=== PATIENT | female | born 1985 | race Caucasian/White ===

== ENCOUNTER → 2016-09-11 | Outpatient (CLI) | payer MEDICAID | LOC: CIMAGING 08:10 | PROVIDERS: ATTEND Emergency Medicine | DX: R10.9 Unspecified abdominal pain (principal); R11.2 Nausea with vomiting, unspecified; R19.7 Diarrhea, unspecified | CPT/HCPCS: 76700-PO ==

== ENCOUNTER → 2016-09-26 | Outpatient (CLI) | payer MEDICAID | LOC: CIMAGING 15:11 | PROVIDERS: ATTEND Physician Assistant | DX: R10.2 Pelvic and perineal pain (principal) | CPT/HCPCS: 76856-PO ==

== ENCOUNTER 2017-07-11 09:51 | Emergency (ER) | payer MEDICAID ==
--- NOTE | 2017-07-11 10:12 | EDPHY ---
H & P Stated Complaint: mental health eval Source: Patient Exam Limitations: No limitations - Personal History LMP (Females 10-55): Now Current Tetanus Diphtheria and Acellular Pertussis (TDAP): Yes - Medical/Surgical History Hx Asthma: No Hx Chronic Respiratory Disease: No Hx Diabetes: No Hx Cardiac Disease: No Hx Renal Disease: No Hx Cirrhosis: No Hx Alcoholism: No Hx HIV/AIDS: No Hx Splenectomy or Spleen Trauma: No Other PMH: hypothyroid, bipolar - Social History Smoking Status: Never smoked Time Seen by Provider: 07/11/17 10:11 HPI/ROS: HPI: This is a 32-year-old female who presents with Chief Complaint: Psychiatric evaluation Location:psych Quality: Suicidal ideation and attempt Duration: 1-2 weeks Signs and Symptoms: no auditory and visual command hallucinations,+ suicidal ideation with a plan, no homicidal ideation, not paranoid Timing: Acute on chronic Severity: Severe Context: Patient presents with her father voluntarily with a medical history of bipolar disorder, schizoaffective disorder. She reports over the last 1-2 weeks she has had thoughts of harming herself constantly. She has been scratching and cutting at her arms. She has been using knives to be placed toward her throat and threatening to cut her throat. Several days ago she walked down to the drug store and brought of package of Benadryl and took 10 tablets with the purpose of going to sleep and"never waking up." Patient reports that she no longer wants to live, "wants to kill herself" but she has 2 kinds and does not have the"cut"to follow through. Reports that her medications have been adjusted over the last several months. Father is concerned as she has become more labile, uncontrollable and not easily directed at home. They lock all medicines in the cabinet and walk away all denies. Her father and mother fear fir their life and the patient's at night when they go to bed. Recent change in psychiatrist. Taking Zyprexa. Had been on Haldol for years but decreased effectiveness over the last year so medications have been changed. Modifying Factors: Regular psychiatric meds Comment: ROS: see HPI Constitutional: No fever, no chills, no weight loss Eyes: No blurred vision Respiratory: No shortness of breath, no cough Cardiovascular: No chest pain Gastrointestinal: No nausea, no vomiting, no diarrhea Genitourinary: No dysuria Extremities: No myalgias Neurologic: No weakness, no numbness Skin: No rashes Hematologic: No bruising, no bleeding MEDICAL/SURGICAL/SOCIAL HISTORY: Medical history: Hypothyroidism, bipolar disorder, schizoaffective disorder Surgical history: Denies Social history: Employed 2 days a week. Lives with her parents. CONSTITUTIONAL: Flat affect, adult white female, father at bedside, awake and alert, no obvious distress HEENT: Atraumatic and normocephalic, PERRL, EOMI. Tympanic membranes clear. Oropharynx clear, no exudate and moist pink mucosa. Airway patent. No lymphadenopathy. No meningismus. Cardiovascular: Normal S1/S2, regular rate, regular rhythm, without murmur rub or gallop. PULMONARY/CHEST: Symmetrical and nontender. Clear to auscultation bilaterally. Good air movement. No accessory muscle usage. ABDOMEN: Soft, nondistended, nontender, no rebound, no guarding, no peritoneal signs, no masses or organomegaly. No CVAT. EXTREMITIES: 2/2 pulses, strength 5/5, no deformities, no clubbing, no cyanosis or edema. NEUROLOGICAL: no focal neuro deficits. GCS 15. SKIN: Warm and dry, no erythema. no rash. Good capillary refill. PSYCH: Poor eye contact, no flight of ideas, organized thought process, poor insight and judgment, no auditory and visual command hallucinations,+ suicidal ideation with a plan, no homicidal ideation, not paranoid (Lucie,Terra) Constitutional: Initial Vital Signs Temperature (C) 36.3 C 07/11/17 09:56 Heart Rate 106 H 07/11/17 09:56 Respiratory Rate 16 07/11/17 09:56 Blood Pressure 116/80 07/11/17 09:56 O2 Sat (%) 95 07/11/17 09:56 O2 Delivery Mode Room Air Allergies/Adverse Reactions: amoxicillin Allergy (Mild, Verified 06/04/15 10:58) Rash aripiprazole [From Abilify] Allergy (Mild, Verified 06/04/15 10:58) Rash levofloxacin [From Levaquin] Allergy (Mild, Verified 06/04/15 10:58) Rash Home Medications: Medication Instructions Recorded Klonopin (RX) 03/15/14 Synthroid 03/15/14 Trileptal 03/15/14 Vitamin B 12 03/15/14 Atorvastatin Calcium 07/11/17 Benztropine Mesylate [Cogentin] 07/11/17 Folic Acid 07/11/17 Luvox 100 MG (*) 07/11/17 Neurontin 07/11/17 Medical Decision Making ED Course/Re-evaluation: 1030: Placed on M1 hold due to be in gravely disabled secondary to suicidal ideation and passive attempts. Labs and UDS ordered. Currently calm and cooperative. 1120: Labs and UDS reviewed; medically clear for mental health evaluation 1345: Patient and mother are at bedside. Patient now reports that she has thoughts and will not actually commit suicide. She was evaluated by mental health who recommends discharge home over the weekend to the care her mother. Mother contracts for patient safety. Family and Mental Health believe that medication changes have caused exacerbation in her depression and passive suicidal thoughts. They recommend discharge home as patient does not meet inpatient psychiatric treatment as she is not actively suicidal at this time. The plan is for her to be admitted to the crisis stabilization unit on Thursday. If symptoms increase over the weekend, she is to return to the emergency room for further stabilization. She is no longer gravely disabled or risk to herself or others. 1350: M1 hold terminated Abrasions on arm do not show any signs of cellulitis/abscess/need of laceration repair. This patient was seen under the supervision of my secondary supervising physician. I evaluated care for this patient independently. Discussed this patient with Dr. Bowers who did not see the patient. (Bing Faulkner) Differential Diagnosis: Differential diagnosis includes but is not limited to functional in situational depression, bipolar disorder depressive type, suicidal ideation and attempts, psychosis, delusional. (Bing Faulkner) Other Provider: PHYSICIAN DOCUMENTATION: The patient was evaluated and managed by the Physician Sleep Manager and myself. I have reviewed the chart and agree with the findings and plan of care as documented. In addition, I examined the patient myself at 1040. History confirmed as schizoaffective disorder with thoughts of hurting herself. Physical findings as follows: Admits to thoughts of self injury and suicidal ideation. Placed on a mental health hold by myself initially. After mental health evaluation the patient denies plan and contracts for safety, has passive SI but does not appear to be a danger to herself or others. Hold vacated. Cerner Analyst and psychiatric recommendation is discharge with intake at [facility] in 48 hours, patient and family are agreeable. I am the secondary supervising physician. (Roderick Bowers) - Data Points Laboratory Results: Laboratory Results 07/11/17 10:49 07/11/17 10:49 07/11/17 07/11/17 07/11/17 11:05 10:49 10:49 WBC RBC Hgb Hct MCV MCH MCHC RDW Plt Count MPV Neut % (Auto) Lymph % (Auto) Rawlins % (Auto) Eos % (Auto) Baso % (Auto) Nucleat RBC Rel Count Absolute Neuts (auto) Absolute Lymphs (auto) Absolute Monos (auto) Absolute Eos (auto) Absolute Basos (auto) Absolute Nucleated RBC Immature Gran % Immature Gran # Sodium Potassium Chloride Carbon Dioxide Anion Gap BUN Creatinine Estimated GFR Glucose Calcium TSH 1.660 uIU/mL uIU/mL (0.465-4.680) Beta HCG, Qual NEGATIVE Urine Opiates Screen NEGATIVE (NEGATIVE) Urine Barbiturates NEGATIVE (NEGATIVE) Ur Phencyclidine Scrn NEGATIVE (NEGATIVE) Ur Amphetamine Screen NEGATIVE (NEGATIVE) U Benzodiazepines Scrn NEGATIVE (NEGATIVE) Urine Cocaine Screen NEGATIVE (NEGATIVE) U Marijuana (THC) Screen NEGATIVE (NEGATIVE) Ethyl Alcohol 07/11/17 07/11/17 10:49 10:49 WBC 7.14 10^3/uL 10^3/uL (3.80-9.50) RBC 5.02 10^6/uL 10^6/uL (4.18-5.33) Hgb 13.4 g/dL g/dL (12.6-16.3) Hct 40.7 % % (38.0-47.0) MCV 81.1 fL L fL (81.5-99.8) MCH 26.7 pg L pg (27.9-34.1) MCHC 32.9 g/dL g/dL (32.4-36.7) RDW 14.4 % % (11.5-15.2) Plt Count 363 10^3/uL 10^3/uL (150-400) MPV 9.7 fL fL (8.7-11.7) Neut % (Auto) 49.6 % % (39.3-74.2) Lymph % (Auto) 41.6 % % (15.0-45.0) Rawlins % (Auto) 7.1 % % (4.5-13.0) Eos % (Auto) 0.0 % L % (0.6-7.6) Baso % (Auto) 0.7 % % (0.3-1.7) Nucleat RBC Rel Count 0.0 % % (0.0-0.2) Absolute Neuts (auto) 3.54 10^3/uL 10^3/uL (1.70-6.50) Absolute Lymphs (auto) 2.97 10^3/uL 10^3/uL (1.00-3.00) Absolute Monos (auto) 0.51 10^3/uL 10^3/uL (0.30-0.80) Absolute Eos (auto) 0.00 10^3/uL L 10^3/uL (0.03-0.40) Absolute Basos (auto) 0.05 10^3/uL 10^3/uL (0.02-0.10) Absolute Nucleated RBC 0.00 10^3/uL 10^3/uL (0-0.01) Immature Gran % 1.0 % % (0.0-1.1) Immature Gran # 0.07 10^3/uL 10^3/uL (0.00-0.10) Sodium 141 mEq/L mEq/L (135-145) Potassium 4.4 mEq/L mEq/L (3.5-5.2) Chloride 105 mEq/L mEq/L (97-110) Carbon Dioxide 22 mEq/l mEq/l (22-31) Anion Gap 14 mEq/L mEq/L (8-16) BUN 17 mg/dL mg/dL (7-23) Creatinine 0.5 mg/dL L mg/dL (0.6-1.0) Estimated GFR > 60 Glucose 100 mg/dL mg/dL (70-100) Calcium 9.4 mg/dL mg/dL (8.5-10.4) TSH Beta HCG, Qual Urine Opiates Screen Urine Barbiturates Ur Phencyclidine Scrn Ur Amphetamine Screen U Benzodiazepines Scrn Urine Cocaine Screen U Marijuana (THC) Screen Ethyl Alcohol < 10 mg/dL mg/dL (0-10) Departure - Departure Disposition: Home, Routine, Self-Care Clinical Impression: Schizoaffective disorder, bipolar type, Suicidal ideations Condition: Fair Instructions: Suicide Prevention for Adults (ED) Additional Instructions: Please follow-up with outpatient psychiatry as discussed with mental health. The plan is for you to be admitted to the crisis stabilization unit on Thursday. Call 911 if you have thoughts of hurting or killing yourself or anyone else, or have any new or worsening symptoms that concern you. Referrals: Edith Cotto PA [Primary Care Provider] - As per Instructions
[2017-07-11 11:02] LABS: PLATELET COUNT 363 10^3/uL (150-400)
[2017-07-11 14:07] VITALS: BP 112/86; PULSE 98; RESP 14; TEMP 98.1; O2SAT 97
== END 2017-07-11 14:07 | disposition home or self-care (01) ==
DX: R45.851 Suicidal ideations (principal); F31.9 Bipolar disorder, unspecified; F25.9 Schizoaffective disorder, unspecified
CPT/HCPCS: 80305; G0480

== ENCOUNTER 2017-08-07 14:24 | Emergency (ER) | payer MEDICAID ==
--- NOTE | 2017-08-07 14:29 | EDPHY ---
H & P Source: Patient, RN/MD, RN notes reviewed Exam Limitations: No limitations - Medical/Surgical History Hx Asthma: No Hx Chronic Respiratory Disease: No Hx Diabetes: No Hx Cardiac Disease: No Hx Renal Disease: No Hx Cirrhosis: No Hx Alcoholism: No Hx HIV/AIDS: No Hx Splenectomy or Spleen Trauma: No Other PMH: hypothyroid, bipolar - Social History Smoking Status: Never smoked Time Seen by Provider: 08/07/17 14:27 HPI/ROS: HPI: This is a 32-year-old female who presents with Chief Complaint: M1 hold Location: psych Quality:M1 hold Duration: Last several days Signs and Symptoms: no auditory and visual command hallucinations, + suicidal ideation with a plan, + homicidal ideation, no paranoia Timing: Rapidly worsening Severity: Severe Context: Patient has a history of schizoaffective disorder, bipolar disorder, presents on M[facility] hold from the crisis Center with complaints of worsening psychosis with suicidal ideations and self-harm. Patient reports that"I hate myself"and yells at the therapist saying, "I am going to kill myself." Patient scratches her arm until it bleeds and then further tells with therapist that, "if I had a knife, I'd sliced it off." Patient has extreme anger and emotional disorganization the therapist work agrees that she may harm other people. There has been recent changes to her medications. Patient is unsure of what medication she actually takes other than Seroquel, sleep medicine, Synthroid and gabapentin. Modifying Factors: None Comment: ROS: see HPI Constitutional: No fever, no chills, no weight loss Eyes: No blurred vision Respiratory: No shortness of breath, no cough Cardiovascular: No chest pain Gastrointestinal: No nausea, no vomiting, no diarrhea Genitourinary: No dysuria Extremities: No myalgias Neurologic: No weakness, no numbness Skin: No rashes Hematologic: No bruising, no bleeding MEDICAL/SURGICAL/SOCIAL HISTORY: Medical history: Hypothyroidism, bipolar disorder, schizoaffective disorder Surgical history: Denies Social history: Takes control pills. Lives with parents who are advanced in age. Family history noncontributory. CONSTITUTIONAL: Adult white female, nontoxic in appearance, tidy, cooperative, eating Gabriel crackers when I enter the room, awake and alert, no obvious distress HEENT: Atraumatic and normocephalic, PERRL, EOMI. Nares patent; no rhinorrhea; no nasal mucosal edema. Tympanic membranes clear. Oropharynx clear, no exudate and moist pink mucosa. Airway patent. No lymphadenopathy. No meningismus. Cardiovascular: Normal S1/S2, regular rate, regular rhythm, without murmur rub or gallop. PULMONARY/CHEST: Symmetrical and nontender. Clear to auscultation bilaterally. Good air movement. No accessory muscle usage. ABDOMEN: Soft, nondistended, nontender, no rebound, no guarding, no peritoneal signs, no masses or organomegaly. No CVAT. EXTREMITIES: 2/2 pulses, strength 5/5, no deformities, no clubbing, no cyanosis or edema. NEUROLOGICAL: no focal neuro deficits. GCS 15. SKIN: Warm and dry, superficial abrasion noted to forearm; no erythema. no rash. Good capillary refill. PSYCH: Good eye contact, no flight of ideas, organized thought process, fair insight and judgment, no auditory and visual command hallucinations, + suicidal ideation with a plan, + homicidal ideation, no paranoia (Lucie,Terra) Constitutional: Initial Vital Signs Temperature (C) 36.4 C 08/07/17 14:24 Heart Rate 94 08/07/17 14:24 Respiratory Rate 16 08/07/17 14:24 Blood Pressure 118/83 H 08/07/17 14:24 O2 Sat (%) 97 08/07/17 14:24 O2 Delivery Mode Room Air Allergies/Adverse Reactions: amoxicillin Allergy (Mild, Verified 06/04/15 10:58) Rash aripiprazole [From Abilify] Allergy (Mild, Verified 06/04/15 10:58) Rash levofloxacin [From Levaquin] Allergy (Mild, Verified 06/04/15 10:58) Rash Home Medications: Medication Instructions Recorded Klonopin (RX) 03/15/14 Synthroid 03/15/14 Trileptal 03/15/14 Vitamin B 12 03/15/14 Atorvastatin Calcium 07/11/17 Benztropine Mesylate [Cogentin] 07/11/17 Folic Acid 07/11/17 Luvox 100 MG (*) 07/11/17 Neurontin 07/11/17 Medical Decision Making ED Course/Re-evaluation: 1445: Agree with M1 hold for gravely disabled; suicidal ideation/homicidal ideation. Labs and UDS ordered including TSH. Currently calm and cooperative. 1531: Notified by nursing that patient now stating that she wants to scratch her arms began to hurt herself. Requesting Ativan. P.o. Ativan 2 mg ordered. 1600: Labs and UDS reviewed. + positive for benzodiazepine. Medically clear for mental health evaluation. 1700: End of shift. Signed over to Dr. Marks pending mental health evaluation. Mental health provider is in room evaluating patient at this time. Suspect will be admitted to inpatient psychiatric hospital for medication stabilization. This patient was seen under the supervision of my secondary supervising physician. I evaluated care for this patient independently. Discussed this patient with Dr. Malik who did not see the patient. (Bing Faulkner) The patient was turned over to me at 5:00 p.m. pending psychiatric evaluation. 7:00 p.m.: The patient is being evaluated for inpatient psychiatric placement. The patient will be turned over to Dr. Perez at shift change pending psychiatric evaluation. (Yash Marks) 0815: accepted to [facility] by Dr. Cruz. EMTALA completed. (Jessica Malik) Differential Diagnosis: Differential diagnosis includes but is not limited to functional situational depression, bipolar disorder, schizoaffective disorder, schizophrenia, psychosis , medication side effects. (Bing Faulkner) Other Provider: I assumed care of the patient at 5pm pending psychiatric evaluation and disposition. (Yash Marks) 2200 care assumed by me pending placement. 0700 care signed out to Dr. Malik pending placement. No issues during my care this patient overnight (Monster Perez) - Data Points Laboratory Results: Laboratory Results 08/07/17 15:03 08/07/17 15:03 Medications Given: Discontinued Medications Clonazepam (Klonopin) 0.5 mg PO EDNOW ONE Stop: 08/07/17 18:03 Last Admin: 08/07/17 18:19 Dose: 0.5 mg Fluvoxamine Maleate (Luvox) 25 mg PO EDNOW ONE Stop: 08/07/17 18:05 Last Admin: 08/07/17 18:16 Dose: 25 mg Gabapentin (Neurontin) 400 mg PO EDNOW ONE Stop: 08/07/17 18:04 Last Admin: 08/07/17 18:16 Dose: 400 mg Lorazepam (Ativan) 2 mg PO EDNOW ONE Stop: 08/07/17 15:31 Last Admin: 08/07/17 15:35 Dose: 2 mg Lorazepam (Ativan) 2 mg PO EDNOW ONE Stop: 08/07/17 15:31 Last Admin: 08/07/17 15:35 Dose: Not Given Oxcarbazepine (Trileptal) 300 mg PO EDNOW ONE Stop: 08/07/17 18:05 Last Admin: 08/07/17 18:16 Dose: 300 mg Quetiapine Fumarate (Seroquel) 100 mg PO EDNOW ONE Stop: 08/07/17 18:04 Last Admin: 08/07/17 18:19 Dose: 100 mg Departure - Departure Disposition: Other Psych, Not Steve Clinical Impression: Suicidal behavior with attempted self-injury, Schizoaffective disorder, bipolar type Abrasion forearm Qualifiers: Encounter type: initial encounter Laterality: unspecified laterality Qualified Code(s): S50.819A - Abrasion of unspecified forearm, initial encounter Condition: Good Referrals: Edith Cotto PA [Primary Care Provider] - As per Instructions
[2017-08-07 15:20] LABS: PLATELET COUNT 296 10^3/uL (150-400)
[2017-08-07] MEDS ORDERED: LORazepam 1 MG TAB PO ONE ×2 (15:30)
[2017-08-07] MEDS ORDERED: clonazePAM 0.5 MG TAB PO ONE (18:02)
[2017-08-07] MEDS ORDERED: GABAPENTIN 400 MG CAP PO ONE (18:03)
[2017-08-07] MEDS ORDERED: QUEtiapine FUMARATE 200 MG TAB PO ONE (18:03)
[2017-08-07] MEDS ORDERED: OXcarbazepine 300 MG TAB PO ONE (18:04)
[2017-08-07] MEDS ORDERED: fluvoxaMINE MALEATE 50 MG TAB PO ONE (18:04)
[2017-08-07] MEDS ORDERED: CIPROFLOXACIN 500 MG TAB ONE (20:23)
[2017-08-08 09:07] VITALS: BP 113/64
== END 2017-08-08 09:00 ==
LOC: EDUNIT#
DX: S50.819A Abrasion of unspecified forearm, initial encounter (principal); F25.9 Schizoaffective disorder, unspecified; F31.9 Bipolar disorder, unspecified; X78.1XXA Intentional self-harm by knife, initial encounter
CPT/HCPCS: 80305; G0480

== ENCOUNTER 2017-09-23 19:30 | Emergency (ER) | payer OTHER, MEDICAID ==
--- NOTE | 2017-09-23 20:33 | EDPHY ---
H & P Stated Complaint: c/o ongoing bleeding/painful hemorrhoids x 2-3 months Time Seen by Provider: 09/23/17 20:31 HPI/ROS: CHIEF COMPLAINT: "My hemorrhoids are hurting" HISTORY OF PRESENT ILLNESS: 32-year-old female currently on her menstrual period, history of recurrent hemorrhoids for several years, complaining of painful defecation and blood on toilet paper and in the toilet this evening after a hard stool passage. No abdominal pain. No rectal foreign body insertion. No fever or chills. No dizziness. REVIEW OF SYSTEMS: A ten point review of systems was performed and is negative with the exception of the items mentioned in the HPI PAST MEDICAL & SURGICAL HISTORY: Schizoaffective disorder, bipolar disorder. Recurrent hemorrhoids in fissures. SOCIAL HISTORY:Lives with family PHYSICAL EXAM (Prior to examination, patient consented to physical exam, hands were washed and my usual and customary physical exam procedures followed) 1) GENERAL: Well-developed, well-nourished, alert and oriented. Appears to be in no acute distress. 2) HEAD: Normocephalic, atraumatic 3) HEENT: Pupils equal, round, reactive to light bilaterally. Sclera anicteric. [Nasopharynx, oropharynx, clear, no lesions. Moist mucous membranes 4) NECK: Full range of motion, no meningeal signs. 5) LUNGS: Clear auscultation bilaterally, no wheezes, no rhonchi, no retractions. 6) HEART: Regular rate and rhythm, no murmur, no heave, no gallop. 7) ABDOMEN: No guarding, no rebound, no focal tenderness, negative McBurney's, negative Norman's, negative Rovsing's, negative peritoneal sign, 8) MUSCULOSKELETAL: Moving all extremities, no focal areas of tenderness, no obvious trauma. No peripheral edema or discoloration. 9) BACK: No CVA tenderness, no midline vertebral tenderness, no fluctuance, no step-off, no obvious trauma, no visual or palpable abnormality. 10) SKIN: No rash, no petechiae. 11) RECTAL (with mother and female retail merchandiser technician Isabell at bedside): No external hemorrhoids, no thrombosed hemorrhoid, no signs of perianal abscess, no discoloration. Vaginal bleeding noted. DIFFERENTIAL DIAGNOSIS: In no particular include but limited to internal hemorrhoid, external hemorrhoid, thrombosed hemorrhoid, anal fissures - Medical/Surgical History Hx Asthma: No Hx Chronic Respiratory Disease: No Hx Diabetes: No Hx Cardiac Disease: Yes Hx Renal Disease: No Hx Cirrhosis: No Hx Alcoholism: No Hx HIV/AIDS: No Hx Splenectomy or Spleen Trauma: No Other PMH: hypothyroid, bipolar, hyperlipidemia - Social History Smoking Status: Never smoked Constitutional: Initial Vital Signs Temperature (C) 36.8 C 09/23/17 20:14 Heart Rate 91 09/23/17 20:14 Respiratory Rate 16 09/23/17 20:14 Blood Pressure 132/103 H 09/23/17 20:14 O2 Sat (%) 95 09/23/17 20:14 O2 Delivery Mode Room Air Allergies/Adverse Reactions: amoxicillin Allergy (Mild, Verified 09/23/17 20:19) Rash aripiprazole [From Abilify] Allergy (Mild, Verified 09/23/17 20:19) Rash levofloxacin [From Levaquin] Allergy (Mild, Verified 09/23/17 20:19) Rash Home Medications: Medication Instructions Recorded Klonopin (RX) 03/15/14 Synthroid 03/15/14 Trileptal 03/15/14 Vitamin B 12 03/15/14 Atorvastatin Calcium 07/11/17 Benztropine Mesylate [Cogentin] 07/11/17 Folic Acid 07/11/17 Luvox 100 MG (*) 07/11/17 Neurontin 07/11/17 Benadryl 09/23/17 [facility] 09/23/17 Medical Decision Making Procedures: Procedure: Anoscopy Indications: Complaints of pain with defecation and bleeding Indications risks benefits discussed with patient. With mother and with female retail merchandiser technician Isabell at bedside an anoscope was introduced usual customary fashion , observed under magnification and lighting and multiple fissures are noted. Patient tolerated procedure well ED Course/Re-evaluation: Patient is noted to have multiple anal fissures. I placed lidocaine jelly on this area and recommend patient buy [id number] topical anesthetic his appointment. At this time I do not think that hospitalization is indicated. Doubt GI bleed. She has an appointment with a astronomy department chair upcoming. Recommended stool softeners, Sitz baths. She already has prescription for anal hydrocortisone. She feels comfortable being discharged. I saw this patient independently based on established practice protocols. Care of patient under supervision of secondary supervising physician Dr Hamlin . - Data Points Medications Given: Discontinued Medications Lidocaine (Uroject Lidocaine 2% Jelly) 20 ml UR EDNOW ONE Stop: 09/23/17 20:52 Last Admin: 09/23/17 20:56 Dose: 20 ml Departure - Departure Disposition: Home, Routine, Self-Care Clinical Impression: Anal fissure Condition: Good Instructions: Anal Fissure (ED) Additional Instructions: Take baths, use stool softeners, increase your liquid intake. Return to the ER if you develop dizziness, abdominal pain or any other symptoms that concern you. Referrals: Edith Cotto PA [Primary Care Provider] - 1-2 days without fail
[2017-09-23 20:44] VITALS: BP 112/88
[2017-09-23] MEDS ORDERED: LIDOCAINE 2% JELLY 20 ML (UROJECT) UR ONE (20:51)
== END 2017-09-23 21:09 | disposition home or self-care (01) ==
PROC: 0DJD8ZZ Inspection of Lower Intestinal Tract, Via Natural or Artificial Opening Endoscopic (ICD-10-PCS; principal; 2017-09-23)
DX: K60.2 Anal fissure, unspecified (principal)

== ENCOUNTER 2017-10-22 15:30 | Emergency (ER) | payer OTHER, MEDICAID ==
[2017-10-22] MEDS ORDERED: NS 1,000 ML IV ONE (16:03)
--- NOTE | 2017-10-22 16:06 | EDPHY ---
H & P Stated Complaint: dizzy, constipation, CERON - Personal History LMP (Females 10-55): Now Current Tetanus/Diphtheria Vaccine: Yes Current Tetanus Diphtheria and Acellular Pertussis (TDAP): Yes - Medical/Surgical History Hx Asthma: No Hx Chronic Respiratory Disease: No Hx Diabetes: No Hx Cardiac Disease: No Hx Renal Disease: No Hx Cirrhosis: No Hx Alcoholism: No Hx HIV/AIDS: No Hx Splenectomy or Spleen Trauma: No Other PMH: hypothyroid, bipolar, hyperlipidemia, anal fissure - Social History Smoking Status: Never smoked <Dell Dumont Padmini - Last Filed: 10/22/17 16:56> <Elton Beckwith - Last Filed: 10/22/17 20:21> Time Seen by Provider: 10/22/17 15:53 HPI/ROS: CHIEF COMPLAINT: Abdominal pain nausea, vomiting HISTORY OF PRESENT ILLNESS: 32-year-old female with medical history significant for bipolar disorder, chronic anal fissures, arrives via private vehicle complaining of 3 days of lower abdominal pain and cramping, hard stools , pain with defecation, nausea. She was seen by her PCP today and referred to the ER told to remain NPO. Patient states that she is quite hungry currently. She is also complaining of mild non thunderclap headache as well as dizziness. She is able to ambulate on her own without assistance She ate breakfast this morning tolerated this well. She denies melena hematochezia. Denies hematemesis. Denies fever or chills. Currently on her menstrual period. PRIMARY CARE PROVIDER:[facility] REVIEW OF SYSTEMS: A ten point review of systems was performed and is negative with the exception of the items mentioned in the HPI PAST MEDICAL & SURGICAL HISTORY: Anal fissure. Bipolar disorder. No history of abdominal surgery. SOCIAL HISTORY: Nonsmoker PHYSICAL EXAM (Prior to examination, patient consented to physical exam, hands were washed and my usual and customary physical exam procedures followed) 1) GENERAL: Well-developed, well-nourished, alert and oriented. Appears to be in no acute distress. 2) HEAD: Normocephalic, atraumatic 3) HEENT: Pupils equal, round, reactive to light bilaterally. Sclera anicteric. Nasopharynx, oropharynx, clear, no lesions. Moist mucous membrane 4) NECK: Full range of motion, no meningeal signs. 5) LUNGS: Clear auscultation bilaterally, no wheezes, no rhonchi, no retractions. 6) HEART: Regular rate and rhythm, no murmur, no heave, no gallop. 7) ABDOMEN: No guarding, no rebound, tender to palpation bilateral lower quadrant, negative Norman's,, negative peritoneal sign, 8) MUSCULOSKELETAL: Moving all extremities, no focal areas of tenderness, no obvious trauma. No peripheral edema or discoloration. 9) BACK: No CVA tenderness, no midline vertebral tenderness, no fluctuance, no step-off, no obvious trauma, no visual or palpable abnormality. 10) SKIN: No rash, no petechiae. 11) Psychiatric: Patient is oriented X 3, there is no agitation. 12) NEURO: Awake, alert, and oriented to person, place and time. Answers questions appropriately. There were no obvious focal neurologic abnormalities. No cerebellar dysfunction. Cranial nerves 2 through to 12 intact. Normal steady gait. Upper and lower extremities bilaterally with strength 5 / 5, reflexes 2+. 13) (with nurse Rach Cannon at bedside): No external genitalia lesions. Perineum unremarkable. Tender anal fissure noted. No evidence of perianal abscess. No evidence of perianal cellulitis or infectious pathology. DIFFERENTIAL DIAGNOSIS: My differential diagnosis includes, but is not limited to, acute appendicitis, acute cholecystitis, bowel obstruction, acute pancreatitis, ovarian torsion, constipation, ectopic , gastritis and urinary tract infection. The patient understands that this diagnosis is provisional and can never be 100% accurate. This is a partial list of diagnoses considered. These considerations are based on history, physical exam, past history and reassessment. (Dell Dumont) Constitutional: Initial Vital Signs Temperature (C) 36.7 C 10/22/17 15:45 Heart Rate 78 10/22/17 15:45 Respiratory Rate 16 10/22/17 15:45 Blood Pressure 113/75 10/22/17 15:45 O2 Sat (%) 95 10/22/17 15:45 O2 Delivery Mode Room Air Allergies/Adverse Reactions: amoxicillin Allergy (Mild, Verified 10/22/17 15:43) Rash aripiprazole [From Abilify] Allergy (Mild, Verified 10/22/17 15:43) Rash levofloxacin [From Levaquin] Allergy (Mild, Verified 10/22/17 15:43) Rash Home Medications: Medication Instructions Recorded Klonopin (RX) 03/15/14 Synthroid 03/15/14 Trileptal 03/15/14 Vitamin B 12 03/15/14 Atorvastatin Calcium 07/11/17 Folic Acid 07/11/17 Luvox 100 MG (*) 07/11/17 Neurontin 07/11/17 Medical Decision Making <Dell Dumont - Last Filed: 10/22/17 16:56> - Diagnostics Imaging: Discussed imaging studies w/ set up mechanic stamping machines Radiologist <Elton Beckwith - Last Filed: 10/22/17 20:21> - Diagnostics Imaging Results: Imaging Impressions Abdomen CT 10/22/17 16:33 Impression: 1. Obstipation 2. Normal appendix 3. Solitary liver lesion. Differential diagnosis includes flash filling of a hemangioma, adenoma, focal nodular hyperplasia and atypical hyperplastic nodule. Recommend liver MRI for further characterization. Results called and discussed with Elton Beckwith, at 10/22/2017 17:07 General information for patients regarding this examination can be found at [email or web address]. If you have questions or comments about this report, please contact me at (hospital) or [phone] (cell). Pelvic/Renal Ultrasound 10/22/17 16:41 Impression: Normal ultrasound pelvis. These findings were discussed by telephone with Dr. Elton Beckwith at 17:32 hour, 10/22/2017. ED Course/Re-evaluation: 4:00 p.m.: Patient has multiple complaints however primary complaint is abdominal pain. Will obtain diagnostic studies and more than likely CT imaging of the abdomen and pelvis. She specifically wanted me to evaluate the perianal region. She is noted to have a non infected anal fissure with no evidence of perianal abscess. 5:00 p.m.: Care turned over to Dr. Elton Beckwiht pending pelvic ultrasound and abdominal CT. (Dell Dumont) 5:10 p.m. the patient's abdominal CT is unremarkable except for a 16 mm liver lesion. We discussed this and she will get a follow-up MRI with her primary. Ultrasound also reported to me is normal. 5:50 p.m. we discussed her ultrasound results. She and her daughter reassured. They will follow up with an MRI. We discussed constipation. They have magnesium citrate home and will use that. We discussed indications for returning. (Elton Beckwith) Differential Diagnosis: Partial list of the Differential diagnosis considered include but were not limited to; gastritis, food poisoning, ovarian cysts, and although unlikely based on the history and physical exam, I also considered appendicitis, biliary disease obstruction, ischemia. I discussed these differential diagnoses and the plan with the patient as well as the usual and expected course. The patient understands that the diagnosis is provisional and that in medicine we are not always correct and that further workup is often warranted. Usual and customary warnings were given. All of the patient's questions were answered. The patient was instructed to return to the emergency department should the symptoms at all worsen or return, otherwise to followup with the physician as we discussed. (Elton Beckwith) - Data Points Laboratory Results: Laboratory Results 10/22/17 16:05 10/22/17 16:05 10/22/17 10/22/17 10/22/17 16:05 16:05 16:05 WBC 9.87 10^3/uL H 10^3/uL (3.80-9.50) RBC 4.69 10^6/uL 10^6/uL (4.18-5.33) Hgb 12.8 g/dL g/dL (12.6-16.3) Hct 38.5 % % (38.0-47.0) MCV 82.1 fL fL (81.5-99.8) MCH 27.3 pg L pg (27.9-34.1) MCHC 33.2 g/dL g/dL (32.4-36.7) RDW 14.6 % % (11.5-15.2) Plt Count 305 10^3/uL 10^3/uL (150-400) MPV 10.9 fL fL (8.7-11.7) Neut % (Auto) 56.7 % % (39.3-74.2) Lymph % (Auto) 34.1 % % (15.0-45.0) Camp % (Auto) 8.4 % % (4.5-13.0) Eos % (Auto) 0.0 % L % (0.6-7.6) Baso % (Auto) 0.4 % % (0.3-1.7) Nucleat RBC Rel Count 0.0 % % (0.0-0.2) Absolute Neuts (auto) 5.59 10^3/uL 10^3/uL (1.70-6.50) Absolute Lymphs (auto) 3.37 10^3/uL H 10^3/uL (1.00-3.00) Absolute Monos (auto) 0.83 10^3/uL H 10^3/uL (0.30-0.80) Absolute Eos (auto) 0.00 10^3/uL L 10^3/uL (0.03-0.40) Absolute Basos (auto) 0.04 10^3/uL 10^3/uL (0.02-0.10) Absolute Nucleated RBC 0.00 10^3/uL 10^3/uL (0-0.01) Immature Gran % 0.4 % % (0.0-1.1) Immature Gran # 0.04 10^3/uL 10^3/uL (0.00-0.10) Sodium 141 mEq/L mEq/L (135-145) Potassium 4.1 mEq/L mEq/L (3.3-5.0) Chloride 102 mEq/L mEq/L (97-110) Carbon Dioxide 23 mEq/l mEq/l (22-31) Anion Gap 16 mEq/L mEq/L (8-16) BUN 12 mg/dL mg/dL (7-23) Creatinine 0.5 mg/dL L mg/dL (0.6-1.0) Estimated GFR > 60 Glucose 67 mg/dL L mg/dL (70-100) Calcium 9.5 mg/dL mg/dL (8.5-10.4) Total Bilirubin 0.3 mg/dL mg/dL (0.1-1.4) Conjugated Bilirubin 0.3 mg/dL mg/dL (0.0-0.5) Unconjugated Bilirubin 0.0 mg/dL mg/dL (0.0-1.1) AST 22 IU/L IU/L (14-46) ALT 24 IU/L IU/L (9-52) Alkaline Phosphatase 90 IU/L IU/L (38-126) Total Protein 7.2 g/dL g/dL (6.3-8.2) Albumin 4.3 g/dL g/dL (3.5-5.0) Lipase 88 IU/L IU/L (23-300) Beta HCG, Qual NEGATIVE Medications Given: Discontinued Medications Sodium Chloride (Ns) 1,000 mls @ 0 mls/hr IV ONCE ONE PRN Reason: Wide Open Stop: 10/22/17 16:04 Last Admin: 10/22/17 16:10 Dose: 1,000 mls Ketorolac Tromethamine (Toradol) 30 mg IVP EDNOW ONE Stop: 10/22/17 17:24 Last Admin: 10/22/17 17:40 Dose: 30 mg Departure <Dell Dumont - Last Filed: 10/22/17 16:56> <Elton Beckwith - Last Filed: 10/22/17 20:21> - Departure Disposition: Home, Routine, Self-Care Clinical Impression: Abdominal pain Qualifiers: Abdominal location: left lower quadrant Qualified Code(s): R10.32 - Left lower quadrant pain Condition: Good Instructions: Acute Abdominal Pain (ED) Additional Instructions: Seek immediate medical attention if you develop new or worsening symptoms, if you develop fevers, chills, inability to tolerate oral intake or any other symptoms that concerns you. Have your primary obtain an MRI of her liver to better view the small lesion that could be an adenoma. Referrals: Edith Cotto PA [Primary Care Provider] - 1 day without fail
[2017-10-22 16:16] LABS: PLATELET COUNT 305 10^3/uL (150-400)
[2017-10-22] MEDS ORDERED: IOPAMIDOL (ISOVUE-300) 100 ML BTL ONE (16:41)
[2017-10-22] MEDS ORDERED: KETOROLAC 30 MG/1 ML SDV IVP ONE (17:23)
[2017-10-22 17:46] VITALS: BP 104/73
== END 2017-10-22 18:15 | disposition home or self-care (01) ==
DX: R10.32 Left lower quadrant pain (principal); R11.10 Vomiting, unspecified
CPT/HCPCS: 74177; 76856; 96361; 96374; 99285; J1885; Q9967

== ENCOUNTER → 2017-11-13 | Outpatient (CLI) | payer OTHER, MEDICAID ==
[~2017-11-13] MED LIST: GADOBUTROL 10 ML VIAL IVP ONE
== END ==
LOC: FIMAGING 09:49
PROVIDERS: ATTEND Nurse Practitioner Family
DX: K76.9 Liver disease, unspecified (principal)
CPT/HCPCS: 74183; A9585

== ENCOUNTER 2017-12-10 14:46 | Emergency (ER) | payer OTHER, MEDICAID ==
[2017-12-10] MEDS ORDERED: NS 1,000 ML IV ONE (16:39)
[2017-12-10 16:49] LABS: PLATELET COUNT 287 10^3/uL (150-400)
--- NOTE | 2017-12-10 17:26 | EDPHY ---
H & P Smoking Status: Never smoked Time Seen by Provider: 12/10/17 16:51 HPI/ROS: CHIEF COMPLAINT: Abdominal pain, vomiting HISTORY OF PRESENT ILLNESS: 32-year-old female presents to the emergency department with multiple episodes of vomiting over last 3 days. She has had ongoing abdominal pain that is getting worse. They were concerned at [facility] where she lives of possible bowel obstruction. She has no previous history of surgeries. She has vomited multiple times over last few days. She has a history of chronic constipation. No diarrhea. She also has a history of anal fissures and is scheduled for surgery next week. No fevers or chills. No chest pain or difficulty breathing. No back pain. She does have some dysuria with urination. Last menstrual period was 2 weeks ago and she denies . No history of previous bowel obstruction. REVIEW OF SYSTEMS: Constitutional: No fever, no chills. Eyes: No double or blurry vision. ENT: No sore throat. Respiratory: No cough, no shortness of breath. Cardiac: No chest pain. Gastrointestinal: Abdominal pain, vomiting. No diarrhea. Genitourinary: No dysuria. Musculoskeletal: No neck or back pain. Skin: No rashes. Neurological: No headache. (JarvisTati) Past Medical/Surgical History: Schizophrenia, bipolar, chronic constipation, anal fissures, hypothyroidism, hyperlipidemia (JarvisTati) Social History: Resident with [facility] (Maddison Conleycecelia Tay) Physical Exam: General Appearance: Alert, no distress. Afebrile. Eyes: Pupils equal and round. Extraocular motions are all intact. ENT: Mouth: Mucous membranes moist. Respiratory: No wheezing, rhonchi, or rales, lungs are clear to auscultation. Cardiovascular: Regular rate and rhythm. Gastrointestinal: Abdomen is soft. Tenderness with palpation especially the right lower quadrant. There is no masses, rebound or guarding noted. No CVA tenderness bilaterally. Neurological: Alert and oriented x 3, cranial nerves II through XII grossly intact Skin: Warm and dry, no rashes. Musculoskeletal: Nontender to palpate along the cervical, thoracic or lumbar spine. Neck is supple. Extremities: Full range of motion and no peripheral edema. Psychiatric: Patient is oriented X 3, there is no agitation. (JarvisTati) Constitutional: Initial Vital Signs Temperature (C) 36.9 C 12/10/17 14:50 Heart Rate 99 12/10/17 14:50 Respiratory Rate 16 12/10/17 14:50 Blood Pressure 147/95 H 12/10/17 14:50 O2 Sat (%) 93 12/10/17 14:50 O2 Delivery Mode Room Air Allergies/Adverse Reactions: amoxicillin Allergy (Mild, Verified 12/10/17 14:49) Rash aripiprazole [From Abilify] Allergy (Mild, Verified 12/10/17 14:49) Rash levofloxacin [From Levaquin] Allergy (Mild, Verified 12/10/17 14:49) Rash Home Medications: Medication Instructions Recorded Klonopin (RX) 03/15/14 Synthroid 03/15/14 Trileptal 03/15/14 Vitamin B 12 03/15/14 Atorvastatin Calcium 07/11/17 Folic Acid 07/11/17 Luvox 100 MG (*) 07/11/17 Neurontin 07/11/17 Medical Decision Making - Diagnostics Imaging: Discussed imaging studies w/ transformation consultant Radiologist ED Course/Re-evaluation: 32-year-old female presents with abdominal pain and vomiting. On examination she has more tenderness with palpation in the right lower quadrant. I was concerned about possible acute appendicitis. I discussed the pros and cons of CT imaging of the abdomen and pelvis including radiation exposure the patient agrees with CT scan. CT imaging reveals evidence of moderate constipation. Normal appearing appendix. No evidence of obstruction. Patient was given IV Zofran and IV Toradol as well as IV normal saline. The patient feel comfortable being discharged home. She will use magnesium citrate that she has at home for her constipation. She had no episodes of vomiting throughout her 6 hr stay in the emergency department. I do not think additional imaging studies are indicated. (Tati Conley) I did not see this patient while she was in the emergency department. However her care was discussed with the PA while the patient was in the department. I agree with treatment plan and management (Calvin Gandhi) Differential Diagnosis: Including but not limited to constipation, bowel obstruction, acute appendicitis , urinary tract infection, pyelonephritis, kidney stone (Tati Conley) - Data Points Laboratory Results: Laboratory Results 12/10/17 16:30 12/10/17 16:30 Medications Given: Discontinued Medications Acetaminophen (Tylenol) 1,000 mg PO EDNOW ONE Stop: 12/10/17 18:58 Last Admin: 12/10/17 18:58 Dose: 1,000 mg Fentanyl (Sublimaze) 50 mcg IVP EDNOW ONE Stop: 12/10/17 19:30 Last Admin: 12/10/17 19:36 Dose: 50 mcg Sodium Chloride (Ns) 1,000 mls @ 0 mls/hr IV ONCE ONE; Wide Open PRN Reason: Protocol Stop: 12/10/17 16:40 Last Admin: 12/10/17 16:46 Dose: 1,000 mls Ketorolac Tromethamine (Toradol) 15 mg IVP EDNOW ONE Stop: 12/10/17 18:34 Last Admin: 12/10/17 18:54 Dose: Not Given Ondansetron HCl (Zofran) 4 mg IVP EDNOW ONE Stop: 12/10/17 18:34 Last Admin: 12/10/17 18:52 Dose: 4 mg Departure - Departure Disposition: Home, Routine, Self-Care Clinical Impression: Abdominal pain Qualifiers: Abdominal location: generalized Qualified Code(s): R10.84 - Generalized abdominal pain Vomiting Qualifiers: Vomiting type: unspecified Vomiting Intractability: non-intractable Nausea presence: with nausea Qualified Code(s): R11.2 - Nausea with vomiting, unspecified Constipation Qualifiers: Constipation type: unspecified constipation type Qualified Code(s): K59.00 - Constipation, unspecified Instructions: Constipation (ED), High Fiber Diet (ED), Acute Nausea and Vomiting (ED), Acute Abdominal Pain (ED) Additional Instructions: Clear liquids and then slowly advance diet as tolerated. Magnesium citrate as directed [id number] to help relieve symptoms of constipation. Referrals: Edith Cotto PA [Primary Care Provider] - As per Instructions
[2017-12-10] MEDS ORDERED: IOPAMIDOL (ISOVUE-300) 100 ML BTL ONE (17:44)
[2017-12-10] MEDS ORDERED: KETOROLAC 15 MG/1 ML SDV IVP ONE (18:33)
[2017-12-10] MEDS ORDERED: ONDANSETRON 4 MG/2 ML VIAL IVP ONE (18:33)
[2017-12-10] MEDS ORDERED: ACETAMINOPHEN 500 MG TAB ONE (18:56)
[2017-12-10] MEDS ORDERED: ACETAMINOPHEN 500 MG TAB PO ONE (18:57)
[2017-12-10] MEDS ORDERED: fentaNYL 100 MCG/2 ML INJ IVP ONE (19:29)
[2017-12-10 20:52] VITALS: BP 100/75
== END 2017-12-10 20:52 | disposition home or self-care (01) ==
DX: R10.84 Generalized abdominal pain (principal); R11.2 Nausea with vomiting, unspecified; K59.09 Other constipation; K60.1 Chronic anal fissure; F20.9 Schizophrenia, unspecified; F32.9 Major depressive disorder, single episode, unspecified; E03.9 Hypothyroidism, unspecified; E78.5 Hyperlipidemia, unspecified
CPT/HCPCS: 74177; 96374; 96375; 99285; J1885; J2405; J3010; Q9967

== ENCOUNTER 2017-12-18 17:15 | Emergency (ER) | payer OTHER, MEDICAID ==
[2017-12-18] MEDS ORDERED: NS 1,000 ML IV ONE (17:45)
[2017-12-18] MEDS ORDERED: ONDANSETRON 4 MG/2 ML VIAL IVP ONE (17:45)
[2017-12-18] MEDS ORDERED: LORazepam 2 MG/ML INJ IVP ONE (17:49)
--- NOTE | 2017-12-18 17:51 | EDPHY ---
H & P Stated Complaint: c/o 30-45 mins of mid chest pain Time Seen by Provider: 12/18/17 17:44 HPI/ROS: CHIEF COMPLAINT: The chest pain, leg pain, headache, rectal pain, fatigue HISTORY OF PRESENT ILLNESS: The patient is a 32-year-old female with a history of bipolar disorder who is currently living at the [facility]. She had rectal fissure surgery yesterday with anesthesia. She states that ever since she woke up from surgery she has had nausea and has vomited twice. Today she also has chest pain, bilateral leg pain and headache. She does have a history of GERD. No fever. No shortness of breath. She states that her chest pain did not begin until she was given tramadol and ketorolac at [facility] further rectal pain. This was about an hour ago. Severity: 11/27 Modifying factors: No improvement with pain medication given REVIEW OF SYSTEMS: Constitutional: denies: chills, fever, recent illness, recent injury EENTM: denies: blurred vision, double vision, nose congestion Respiratory: denies: cough, shortness of breath Cardiac: See HPI Gastrointestinal/Abdominal: See HPI denies: diarrhea, blood streaked stools Genitourinary: denies: dysuria, frequency, hematuria, pain Musculoskeletal: See HPI Skin: denies: lesions, rash, jaundice, bruising Neurological: denies: headache, numbness, paresthesia, tingling, dizziness, weakness Hematologic/Lymphatic: denies: blood clots, easy bleeding, easy bruising Immunologic/allergic: denies: HIV/AIDS, transplant 10 systems reviewed and negative except as noted EXAM: GENERAL: Strange affect, well-nourished and in no acute distress. HEAD: Atraumatic, normocephalic. EYES: Pupils equal round and reactive to light, extraocular movements intact, sclera anicteric, conjunctiva are normal. ENT: TMs normal, nares patent, oropharynx clear without exudates. Moist mucous membranes. NECK: Normal range of motion, supple without lymphadenopathy or JVD. LUNGS: Breath sounds clear to auscultation bilaterally and equal. No wheezes rales or rhonchi. HEART: Regular rate and rhythm without murmurs, rubs or gallops. ABDOMEN: Soft, nontender, normoactive bowel sounds. No guarding, no rebound. No masses appreciated. Unable to examine the rectum because of bandages and patient's request. No obvious bleeding. BACK: No CVA tenderness, no spinal tenderness, step-offs or deformities EXTREMITIES: Normal range of motion, no pitting or edema. No clubbing or cyanosis. NEUROLOGICAL: Cranial nerves II through XII grossly intact. Normal speech, normal gait. 5/5 strength, normal movement in all extremities, normal sensation , normal reflexes PSYCH: Strange affect, answers questions appropriately SKIN: Warm, dry, normal turgor, no visible rashes or lesions. Source: Patient Exam Limitations: No limitations - Medical/Surgical History Hx Asthma: No Hx Chronic Respiratory Disease: No Hx Diabetes: No Hx Cardiac Disease: Yes Hx Renal Disease: No Hx Cirrhosis: No Hx Alcoholism: No Hx HIV/AIDS: No Hx Splenectomy or Spleen Trauma: No Other PMH: hypothyroid, bipolar, hyperlipidemia, anal fissure -repaired, gerd - Family History Significant Family History: No pertinent family hx - Social History Smoking Status: Never smoked Alcohol Use: None Drug Use: None Constitutional: Initial Vital Signs Temperature (C) 36.9 C 12/18/17 17:21 Heart Rate 94 12/18/17 17:21 Respiratory Rate 18 12/18/17 17:21 Blood Pressure 104/75 12/18/17 17:21 O2 Sat (%) 96 12/18/17 17:21 O2 Delivery Mode Room Air Allergies/Adverse Reactions: amoxicillin Allergy (Mild, Verified 12/18/17 17:25) Rash aripiprazole [From Abilify] Allergy (Mild, Verified 12/18/17 17:25) Rash levofloxacin [From Levaquin] Allergy (Mild, Verified 12/18/17 17:25) Rash Home Medications: Medication Instructions Recorded Klonopin (RX) 03/15/14 Synthroid 03/15/14 Trileptal 03/15/14 Vitamin B 12 03/15/14 Atorvastatin Calcium 07/11/17 Folic Acid 07/11/17 Luvox 100 MG (*) 07/11/17 Neurontin 07/11/17 Metoclopramide [Reglan 10 mg tab 10 mg PO BID PRN 7 Days tab 12/18/17 (RX)] Medical Decision Making - Diagnostics EKG Interpretation: An EKG obtained and was read and documented in trace view. Please see trace view for full reading and report. Sinus rhythm, no acute ischemic changes Imaging Results: Imaging Impressions Chest/Thorax CTA 12/18/17 17:49 Impression: 1. No evidence of pulmonary embolic disease. 2. See above report for additional findings. Results called and discussed with DEIDRE CARLSON M.D. on 12/18/2017 at 18:59. Imaging: Discussed imaging studies w/ call center rn Radiologist ED Course/Re-evaluation: 7:00 p.m. we discussed the CT and lab results which are all reassuring. The patient is feeling much better after medication. She is requesting nausea medication for home. I will prescribe her Reglan. I will give her dose here as well. She and her caregiver declined further workup or observation here in the department. I told her she is lab to take her pain medication this evening. Differential Diagnosis: Partial list of the Differential diagnosis considered include but were not limited to; PE, pneumonia, acute coronary disease and although unlikely based on the history and physical exam, I also considered hemorrhage, postoperative infection. I discussed these differential diagnoses and the plan with the patient as well as the usual and expected course. The patient understands that the diagnosis is provisional and that in medicine we are not always correct and that further workup is often warranted. Usual and customary warnings were given. All of the patient's questions were answered. The patient was instructed to return to the emergency department should the symptoms at all worsen or return, otherwise to followup with the physician as we discussed. - Data Points Laboratory Results: Laboratory Results 12/18/17 17:45 12/18/17 17:45 12/18/17 12/18/17 12/18/17 18:01 17:45 17:45 WBC RBC Hgb Hct MCV MCH MCHC RDW Plt Count MPV Neut % (Auto) Lymph % (Auto) [place] % (Auto) Eos % (Auto) Baso % (Auto) Nucleat RBC Rel Count Absolute Neuts (auto) Absolute Lymphs (auto) Absolute Monos (auto) Absolute Eos (auto) Absolute Basos (auto) Absolute Nucleated RBC Immature Gran % Immature Gran # PT 14.2 SEC SEC (12.0-15.0) INR 1.08 (0.83-1.16) APTT 28.6 SEC SEC (23.0-38.0) Sodium 136 mEq/L mEq/L (135-145) Potassium 3.7 mEq/L mEq/L (3.3-5.0) Chloride 105 mEq/L mEq/L (97-110) Carbon Dioxide 22 mEq/l mEq/l (22-31) Anion Gap 9 mEq/L mEq/L (8-16) BUN 13 mg/dL mg/dL (7-23) Creatinine 0.5 mg/dL L mg/dL (0.6-1.0) Estimated GFR > 60 Glucose 84 mg/dL mg/dL (70-100) Calcium 9.3 mg/dL mg/dL (8.5-10.4) Total Bilirubin < 0.1 mg/dL L mg/dL (0.1-1.4) Conjugated Bilirubin 0.0 mg/dL mg/dL (0.0-0.5) Unconjugated Bilirubin 0.0 mg/dL mg/dL (0.0-1.1) AST 15 IU/L IU/L (14-46) ALT 24 IU/L IU/L (9-52) Alkaline Phosphatase 78 IU/L IU/L (38-126) POC Troponin I 0.00 ng/mL ng/mL (0.00-0.08) Total Protein 6.2 g/dL L g/dL (6.3-8.2) Albumin 3.7 g/dL g/dL (3.5-5.0) Lipase 56 IU/L IU/L (23-300) 12/18/17 17:45 WBC 10.91 10^3/uL H 10^3/uL (3.80-9.50) RBC 3.86 10^6/uL L 10^6/uL (4.18-5.33) Hgb 10.5 g/dL L g/dL (12.6-16.3) Hct 31.3 % L % (38.0-47.0) MCV 81.1 fL L fL (81.5-99.8) MCH 27.2 pg L pg (27.9-34.1) MCHC 33.5 g/dL g/dL (32.4-36.7) RDW 14.3 % % (11.5-15.2) Plt Count 259 10^3/uL 10^3/uL (150-400) MPV 10.8 fL fL (8.7-11.7) Neut % (Auto) 53.6 % % (39.3-74.2) Lymph % (Auto) 38.9 % % (15.0-45.0) [place] % (Auto) 6.7 % % (4.5-13.0) Eos % (Auto) 0.0 % L % (0.6-7.6) Baso % (Auto) 0.4 % % (0.3-1.7) Nucleat RBC Rel Count 0.0 % % (0.0-0.2) Absolute Neuts (auto) 5.86 10^3/uL 10^3/uL (1.70-6.50) Absolute Lymphs (auto) 4.24 10^3/uL H 10^3/uL (1.00-3.00) Absolute Monos (auto) 0.73 10^3/uL 10^3/uL (0.30-0.80) Absolute Eos (auto) 0.00 10^3/uL L 10^3/uL (0.03-0.40) Absolute Basos (auto) 0.04 10^3/uL 10^3/uL (0.02-0.10) Absolute Nucleated RBC 0.00 10^3/uL 10^3/uL (0-0.01) Immature Gran % 0.4 % % (0.0-1.1) Immature Gran # 0.04 10^3/uL 10^3/uL (0.00-0.10) PT INR APTT Sodium Potassium Chloride Carbon Dioxide Anion Gap BUN Creatinine Estimated GFR Glucose Calcium Total Bilirubin Conjugated Bilirubin Unconjugated Bilirubin AST ALT Alkaline Phosphatase POC Troponin I Total Protein Albumin Lipase Medications Given: Discontinued Medications Al Hydroxide/Mg Hydroxide (Maalox Susp) 30 ml PO ONCE ONE Stop: 12/18/17 17:54 Last Admin: 12/18/17 18:03 Dose: 30 ml Haloperidol Lactate (Haldol Injection) 5 mg IVP EDNOW ONE Stop: 12/18/17 18:31 Last Admin: 12/18/17 18:41 Dose: 5 mg Hydromorphone HCl (Dilaudid) 0.5 mg IVP EDNOW ONE Stop: 12/18/17 18:31 Last Admin: 12/18/17 18:43 Dose: 0.5 mg Hyoscyamine Sulfate (Levsin, Hyomax-Sl) 0.25 mg PO ONCE ONE Stop: 12/18/17 17:54 Last Admin: 12/18/17 18:03 Dose: 0.25 mg Sodium Chloride (Ns) 1,000 mls @ 0 mls/hr IV EDNOW ONE; Wide Open PRN Reason: Protocol Stop: 12/18/17 17:46 Last Admin: 12/18/17 18:05 Dose: 1,000 mls Lidocaine (Lidocaine 2% Viscous) 15 ml PO ONCE ONE Stop: 12/18/17 17:54 Last Admin: 12/18/17 18:03 Dose: 15 ml Lorazepam (Ativan Injection) 0.5 mg IVP EDNOW ONE Stop: 12/18/17 17:50 Last Admin: 12/18/17 18:02 Dose: 0.5 mg Ondansetron HCl (Zofran) 4 mg IVP EDNOW ONE Stop: 12/18/17 17:46 Last Admin: 12/18/17 18:02 Dose: 4 mg Point of Care Test Results: Chemistry 12/18/17 18:01 POC Troponin I 0.00 ng/mL ng/mL (0.00-0.08) Departure - Departure Disposition: Home, Routine, Self-Care Clinical Impression: Vomiting, Chest pain, Headache Condition: Fair Instructions: Chest Pain (ED), Acute Headache (ED), Acute Nausea and Vomiting ( ED) Referrals: NONE *PRIMARY CARE P,. [Primary Care Provider] - As per Instructions Prescriptions: Metoclopramide [Reglan 10 mg tab (RX)] 10 mg PO BID PRN 7 Days tab PRN Reason: *Nausea & Vomiting
[2017-12-18] MEDS ORDERED: HYOSCYAMINE SULFATE 0.125 MG TAB PO ONE (17:53)
[2017-12-18] MEDS ORDERED: MAG HYDROX/AL HYDROX/SIMETH 30 ML UDCUP PO ONE (17:53)
[2017-12-18] MEDS ORDERED: LIDOCAINE 2% VISCOUS 15 ML UDCUP PO ONE (17:53)
[2017-12-18 18:01] LABS: PLATELET COUNT 259 10^3/uL (150-400)
--- NOTE | 2017-12-18 18:01 | CPEKG ---
Test Reason : OPEN Blood Pressure : / mmHG Vent. Rate : 090 BPM Atrial Rate : 090 BPM P-R Int : 126 ms QRS Dur : 089 ms QT Int : 387 ms P-R-T Axes : 018 001 028 degrees QTc Int : 474 ms Sinus rhythm Confirmed by Elton Beckwith ([id number]) on 12/18/2017 6:00:44 PM Referred By: Confirmed By:Elton Beckwith
[2017-12-18 18:09] LABS: INR 1.08 (0.83-1.16); PROTIME(PATIENT) 14.2 SEC (12.0-15.0)
[2017-12-18] MEDS ORDERED: IOPAMIDOL (ISOVUE 370) 100 ML BTL IV ONE (18:24)
[2017-12-18] MEDS ORDERED: HALOPERIDOL LACT 5 MG/ML INJ IVP ONE (18:30)
[2017-12-18] MEDS ORDERED: HYDROmorphONE/DILAUDID 2 MG/ML INJ IVP ONE (18:30)
[2017-12-18 18:43] VITALS: BP 103/74
[2017-12-18] MEDS ORDERED: METOCLOPRAMIDE 10 MG/2 ML VIAL IVP ONE (18:59)
== END 2017-12-18 19:17 | disposition home or self-care (01) ==
DX: R07.89 Other chest pain (principal); R11.10 Vomiting, unspecified; R51 Headache; K21.9 Gastro-esophageal reflux disease without esophagitis
CPT/HCPCS: 71275; 93005; 96361; 96374; 96375; 99285; J1170; J1630; J2060; J2405; J2765; Q9967; 84484-PO

== ENCOUNTER → 2018-02-02 | Outpatient (CLI) | payer OTHER, MEDICAID | LOC: BMCIMAGING 07:52 | PROVIDERS: ATTEND Nurse Practitioner Family | DX: R10.84 Generalized abdominal pain (principal); K76.9 Liver disease, unspecified ==

== ENCOUNTER 2018-02-05 12:19 | Emergency (ER) | payer OTHER, MEDICAID ==
[2018-02-05] MEDS ORDERED: ONDANSETRON DISINTEGRATING 4 MG TAB PO ONE (13:38)
--- NOTE | 2018-02-05 14:16 | EDPHY ---
H & P Smoking Status: Never smoked Time Seen by Provider: 02/05/18 14:14 HPI/ROS: Chief complaint. Nausea/vomiting, abdominal pain HPI. Patient is 33-year-old female with abdominal pain for 1 month. Nausea with eating so decreased oral intake. She notes vomiting most nights. Generalized abdominal pain from top to bottom of her abdomen and left to right side. No focal tenderness. She describes as achy. No radiation of her pain. She notes fatigue. No fever. No urinary symptoms though tells me she only urinates 1 time per day. No bowel movement for 6 days. No history of abdominal surgery. No chest pain or shortness of breath ROS 10 systems were reviewed and negative with the exception of the elements mentioned in the history of present illness (Calvin Gandhi) Past Medical/Surgical History: Past medical history significant for bipolar illness, hypothyroid, dyslipidemia , anal fissure this been repaired, GERD (Calvin Gandhi) Social History: Single, nonsmoker, no alcohol (Calvin Gandhi) Physical Exam: General Appearance: A female mild distress vital signs are stable Eyes: Pupils equal and round no pallor or injection. ENT, Mouth: Mucous membranes are moist. Respiratory: There are no retractions, lungs are clear to auscultation. Cardiovascular: Regular rate and rhythm. Gastrointestinal: Abdomen is soft with generalized tenderness. No masses. No organomegaly Neurological: Awake and alert, sensory and motor exams grossly normal. Skin: Warm and dry, no rashes. Musculoskeletal: Neck is supple nontender. Extremities symmetrical, full range of motion. Psychiatric: Patient is oriented X 3, there is no agitation. (Calvin Gandhi) Constitutional: Initial Vital Signs Temperature (C) 36.5 C 02/05/18 12:32 Heart Rate 92 02/05/18 12:32 Respiratory Rate 18 02/05/18 12:32 Blood Pressure 100/75 02/05/18 12:32 O2 Sat (%) 92 02/05/18 12:32 O2 Delivery Mode Room Air Allergies/Adverse Reactions: amoxicillin Allergy (Mild, Verified 02/05/18 12:35) Rash aripiprazole [From Abilify] Allergy (Mild, Verified 02/05/18 12:35) Rash levofloxacin [From Levaquin] Allergy (Mild, Verified 02/05/18 12:35) Rash Home Medications: Medication Instructions Recorded Klonopin (RX) 03/15/14 Synthroid 03/15/14 Trileptal 03/15/14 Vitamin B 12 03/15/14 Atorvastatin Calcium 07/11/17 Folic Acid 07/11/17 Luvox 100 MG (*) 07/11/17 Neurontin 07/11/17 Metoclopramide [Reglan 10 mg tab 10 mg PO BID PRN 7 Days tab 12/18/17 (RX)] Medical Decision Making - Diagnostics Imaging Results: Imaging Impressions Abdomen X-Ray 02/05/18 15:09 Impression: Unusual metallic foreign body in the ascending colon. Results discussed with Dr. Malik. Procedures: IV normal saline (Calvin Gandhi) ED Course/Re-evaluation: This patient was signed over to me at shift change to check the KUB. KUB reveals constipation, similar to prior CT scans x2 in the past 4 months. Discussed with the patient, no bowel movement in 6 days. Abdominal exam is benign. Magnesium citrate 300 mL given. Patient given a Fleet's enema and instructions on how to use it. She will stay on clear liquids for 24 hr. She already has Zofran at home. She is under the care of a GI specialist and they are trying to figure out the etiology of her ongoing pain, which seems likely to be related to dietary issues and/or constipation. (Jessica Malik) Differential Diagnosis: Differential diagnosis includes though it is not limited to appendicitis, cholecystitis, diverticulitis, pyelonephritis, bowel perforation, small bowel obstruction. (Jessica Malik) Care Turn Over: Care to Dr. Malik at 3:00 p.m. (Calvin Gandhi) - Data Points Laboratory Results: Laboratory Results 02/05/18 14:45 02/05/18 14:45 02/05/18 02/05/18 02/05/18 16:08 16:08 14:45 WBC RBC Hgb Hct MCV MCH MCHC RDW Plt Count MPV Neut % (Auto) Lymph % (Auto) [place] % (Auto) Eos % (Auto) Baso % (Auto) Nucleat RBC Rel Count Absolute Neuts (auto) Absolute Lymphs (auto) Absolute Monos (auto) Absolute Eos (auto) Absolute Basos (auto) Absolute Nucleated RBC Immature Gran % Immature Gran # Sodium Potassium Chloride Carbon Dioxide Anion Gap BUN Creatinine Estimated GFR Glucose Calcium Total Bilirubin Conjugated Bilirubin Unconjugated Bilirubin AST ALT Alkaline Phosphatase Total Protein Albumin Lipase Beta HCG, Qual NEGATIVE Urine Color SHIV Urine Appearance MODERATELY TURBID Urine pH 5.0 (5.0-7.5) Ur Specific [place] 1.028 (1.002-1.030) Urine Protein 2+ H (NEGATIVE) Urine Ketones 2+ H (NEGATIVE) Urine Blood NEGATIVE (NEGATIVE) Urine Nitrate NEGATIVE (NEGATIVE) Urine Bilirubin NEGATIVE (NEGATIVE) Urine Urobilinogen 4.0 EU H EU (0.2-1.0) Ur Leukocyte Esterase 2+ H (NEGATIVE) Urine RBC 5-10 /hpf H /hpf (0-3) Urine WBC 25-50 /hpf H /hpf (0-3) Ur Epithelial Cells 4+ /lpf H /lpf (NONE-1+) Calcium Oxalate Crystal PRESENT /hpf /hpf (NONE-1+) Urine Mucus 4+ /lpf H /lpf (NONE-1+) Urine Glucose NEGATIVE (NEGATIVE) Urine Test NEGATIVE 02/05/18 02/05/18 14:45 14:45 WBC 8.11 10^3/uL 10^3/uL (3.80-9.50) RBC 4.72 10^6/uL 10^6/uL (4.18-5.33) Hgb 12.6 g/dL g/dL (12.6-16.3) Hct 37.4 % L % (38.0-47.0) MCV 79.2 fL L fL (81.5-99.8) MCH 26.7 pg L pg (27.9-34.1) MCHC 33.7 g/dL g/dL (32.4-36.7) RDW 13.8 % % (11.5-15.2) Plt Count 281 10^3/uL 10^3/uL (150-400) MPV 11.0 fL fL (8.7-11.7) Neut % (Auto) 65.5 % % (39.3-74.2) Lymph % (Auto) 26.5 % % (15.0-45.0) [place] % (Auto) 7.3 % % (4.5-13.0) Eos % (Auto) 0.0 % L % (0.6-7.6) Baso % (Auto) 0.5 % % (0.3-1.7) Nucleat RBC Rel Count 0.0 % % (0.0-0.2) Absolute Neuts (auto) 5.31 10^3/uL 10^3/uL (1.70-6.50) Absolute Lymphs (auto) 2.15 10^3/uL 10^3/uL (1.00-3.00) Absolute Monos (auto) 0.59 10^3/uL 10^3/uL (0.30-0.80) Absolute Eos (auto) 0.00 10^3/uL L 10^3/uL (0.03-0.40) Absolute Basos (auto) 0.04 10^3/uL 10^3/uL (0.02-0.10) Absolute Nucleated RBC 0.00 10^3/uL 10^3/uL (0-0.01) Immature Gran % 0.2 % % (0.0-1.1) Immature Gran # 0.02 10^3/uL 10^3/uL (0.00-0.10) Sodium 137 mEq/L mEq/L (135-145) Potassium 3.9 mEq/L mEq/L (3.3-5.0) Chloride 100 mEq/L mEq/L (97-110) Carbon Dioxide 20 mEq/l L mEq/l (22-31) Anion Gap 17 mEq/L H mEq/L (6-14) BUN 11 mg/dL mg/dL (7-23) Creatinine 0.6 mg/dL mg/dL (0.6-1.0) Estimated GFR > 60 Glucose 75 mg/dL mg/dL (70-100) Calcium 9.3 mg/dL mg/dL (8.5-10.4) Total Bilirubin 0.3 mg/dL mg/dL (0.1-1.4) Conjugated Bilirubin 0.2 mg/dL mg/dL (0.0-0.5) Unconjugated Bilirubin 0.1 mg/dL mg/dL (0.0-1.1) AST 16 IU/L IU/L (14-46) ALT 21 IU/L IU/L (9-52) Alkaline Phosphatase 126 IU/L IU/L (38-126) Total Protein 7.2 g/dL g/dL (6.3-8.2) Albumin 4.5 g/dL g/dL (3.5-5.0) Lipase 73 IU/L IU/L (23-300) Beta HCG, Qual Urine Color Urine Appearance Urine pH Ur Specific [place] Urine Protein Urine Ketones Urine Blood Urine Nitrate Urine Bilirubin Urine Urobilinogen Ur Leukocyte Esterase Urine RBC Urine WBC Ur Epithelial Cells Calcium Oxalate Crystal Urine Mucus Urine Glucose Urine Test Medications Given: Discontinued Medications Sodium Chloride (Ns) 1,000 mls @ 0 mls/hr IV EDNOW ONE; Wide Open PRN Reason: Protocol Stop: 02/05/18 14:27 Last Admin: 02/05/18 14:47 Dose: 1,000 mls Ondansetron HCl (Zofran Odt) 4 mg PO EDNOW ONE Stop: 02/05/18 13:39 Last Admin: 02/05/18 13:40 Dose: 4 mg Departure - Departure Disposition: Home, Routine, Self-Care Clinical Impression: Constipation Qualifiers: Constipation type: slow transit constipation Qualified Code(s): K59.01 - Slow transit constipation Abdominal pain Qualifiers: Abdominal location: generalized Qualified Code(s): R10.84 - Generalized abdominal pain Condition: Good Instructions: Acute Abdominal Pain (ED), Constipation (ED), High Fiber Diet (ED ) Additional Instructions: Continue seeing your skatesman for further evaluation of your ongoing abdominal pain. Stay on clear liquids for 24 hr. If you do not have a bowel movement after the magnesium citrate and a Fleet enema, consider taking Dulcolax over the counter. Sometimes we are unable to diagnose an obvious cause of abdominal pain in the Emergency Department. Based upon our evaluation today, we see no obvious explanation for your pain. Because more serious conditions can be difficult to diagnose early in the course of their presentation, we ask that you return to the Emergency Department in 12-24 hours for a recheck if you are still having pain. This is necessary to exclude the development of a more serious condition such as appendicitis or other intra-abdominal emergency. In the event your pain markedly increases before that time or you develop intractable vomiting or fever return to the Emergency Department immediately. Referrals: Edith Cotto PA [Primary Care Provider] - As per Instructions
[2018-02-05] MEDS ORDERED: NS 1,000 ML IV ONE (14:26)
[2018-02-05 14:58] LABS: PLATELET COUNT 281 10^3/uL (150-400)
[2018-02-05] MEDS ORDERED: MAGNESIUM CITRATE 300 ML BOTTLE PO ONE (16:38)
[2018-02-05 17:04] VITALS: BP 124/86
== END 2018-02-05 17:04 | disposition home or self-care (01) ==
DX: K59.00 Constipation, unspecified (principal); E03.9 Hypothyroidism, unspecified; E78.5 Hyperlipidemia, unspecified; K21.9 Gastro-esophageal reflux disease without esophagitis; E86.9 Volume depletion, unspecified

== ENCOUNTER 2018-02-17 14:32 | Emergency (ER) | payer OTHER, MEDICAID ==
--- NOTE | 2018-02-17 15:17 | EDPHY ---
H & P Stated Complaint: allergic reaction Time Seen by Provider: 02/17/18 14:55 HPI/ROS: CHIEF COMPLAINT: Infusion reaction HISTORY OF PRESENT ILLNESS: The patient is a 33-year-old female with a history of chronic anemia from iron deficiency, hypothyroidism, prolonged periods and anal fissures. She is followed by Dr. Ram with Oncology. Today she was going to get an iron infusion which she has had before in 2010. Just after starting the infusion she became itchy and had slightly red skin. It was stopped and she was given Solu-Medrol, Benadryl and 0.5 mg of epinephrine. The patient did not have any trouble breathing or wheezing or stridor. No GI symptoms. She did not have this type of reaction with her previous infusion. This was around 1:30 p.m.. This is about an hour and half ago. She is asymptomatic now. She does have a history of schizoaffective disorder as well. Severity: Moderate Modifying factors: Resolved with medication REVIEW OF SYSTEMS: Constitutional: denies: chills, fever, recent illness, recent injury EENTM: denies: blurred vision, double vision, nose congestion Respiratory: denies: cough, shortness of breath Cardiac: denies: chest pain, irregular heart rate, lightheadedness, palpitations Gastrointestinal/Abdominal: denies: abdominal pain, diarrhea, nausea, vomiting, blood streaked stools Genitourinary: denies: dysuria, frequency, hematuria, pain Musculoskeletal: denies: joint pain, muscle pain Skin: denies: lesions, rash, jaundice, bruising Neurological: denies: headache, numbness, paresthesia, tingling, dizziness, weakness Hematologic/Lymphatic: denies: blood clots, easy bleeding, easy bruising Immunologic/allergic: denies: HIV/AIDS, transplant 10 systems reviewed and negative except as noted EXAM: GENERAL: Well-appearing, slightly pale and in no acute distress. HEAD: Atraumatic, normocephalic. EYES: Pupils equal round and reactive to light, extraocular movements intact, sclera anicteric, conjunctiva pale. ENT: TMs normal, nares patent, oropharynx clear without exudates. Moist mucous membranes. NECK: Normal range of motion, supple without lymphadenopathy or JVD. LUNGS: Breath sounds clear to auscultation bilaterally and equal. No wheezes rales or rhonchi. HEART: Regular rate and rhythm without murmurs, rubs or gallops. ABDOMEN: Soft, nontender, normoactive bowel sounds. No guarding, no rebound. No masses appreciated. BACK: No CVA tenderness, no spinal tenderness, step-offs or deformities EXTREMITIES: Normal range of motion, no pitting or edema. No clubbing or cyanosis. NEUROLOGICAL: Cranial nerves II through XII grossly intact. Normal speech, normal gait. 5/5 strength, normal movement in all extremities, normal sensation , normal reflexes PSYCH: Normal mood, normal affect. SKIN: Warm, dry, normal turgor, no visible rashes or lesions. Source: Patient Exam Limitations: No limitations - Personal History LMP (Females 10-55): Now Current Tetanus/Diphtheria Vaccine: Yes - Medical/Surgical History Hx Asthma: No Hx Chronic Respiratory Disease: No Hx Diabetes: No Hx Cardiac Disease: Yes Hx Renal Disease: No Hx Cirrhosis: No Hx Alcoholism: No Hx HIV/AIDS: No Hx Splenectomy or Spleen Trauma: No Other PMH: hypothyroid, bipolar, hyperlipidemia, anal fissure -repaired, gerd - Family History Significant Family History: No pertinent family hx - Social History Smoking Status: Never smoked Alcohol Use: Sober Drug Use: None Constitutional: Initial Vital Signs Temperature (C) 36.5 C 02/17/18 14:38 Heart Rate 82 02/17/18 14:38 Respiratory Rate 18 02/17/18 14:38 Blood Pressure 118/80 02/17/18 14:38 O2 Sat (%) 96 02/17/18 14:38 O2 Delivery Mode Room Air Allergies/Adverse Reactions: amoxicillin Allergy (Mild, Verified 02/17/18 14:42) Rash aripiprazole [From Abilify] Allergy (Mild, Verified 02/17/18 14:42) Rash levofloxacin [From Levaquin] Allergy (Mild, Verified 02/17/18 14:42) Rash Home Medications: Medication Instructions Recorded Klonopin (RX) 03/15/14 Synthroid 03/15/14 Trileptal 03/15/14 Vitamin B 12 03/15/14 Atorvastatin Calcium 07/11/17 Folic Acid 07/11/17 Luvox 100 MG (*) 07/11/17 Neurontin 07/11/17 Metoclopramide [Reglan 10 mg tab 10 mg PO BID PRN 7 Days tab 12/18/17 (RX)] Medical Decision Making ED Course/Re-evaluation: The patient is currently asymptomatic. She has been treated prior to arrival. This does not sound like an allergic reaction as much as a iron transfusion reactions which require common. Typical treatment is steroids and Benadryl which she has already received. We will continue to observe. Otherwise she has stable vital signs and no complaints currently. 4:40 p.m. the patient continues to do well. She is asymptomatic. She states that she is thirsty and is having pain in her leg which is chronic. She is asking for ibuprofen. I will treat her with Tylenol because of her history of GI bleeding. She is happy with this. Her mom request that she be written up as medically cleared because she is going to [facility] this afternoon. Differential Diagnosis: Partial list of the Differential diagnosis considered include but were not limited to; allergic reaction, infusing reaction and although unlikely based on the history and physical exam, I also considered sepsis, cellulitis, anxiety. - Data Points Medications Given: Discontinued Medications Acetaminophen (Tylenol) 1,000 mg PO EDNOW ONE Stop: 02/17/18 16:41 Last Admin: 02/17/18 16:48 Dose: 1,000 mg Departure - Departure Disposition: Home, Routine, Self-Care Clinical Impression: Infusion reaction Qualifiers: Encounter type: initial encounter Qualified Code(s): T80.90XA - Unspecified complication following infusion and therapeutic injection, initial encounter Condition: Fair Instructions: Diphenhydramine (By mouth) Additional Instructions: Your medically cleared for recovery Center. You appear to have had an infusion reaction from the iron. This is not the same as an allergic reaction but is often treated with steroids and Benadryl which she did receive. You may take more Benadryl if needed for itching or rash. Referrals: Calvin Ram MD [Primary Care Provider] - 2-3 days, call for appt.
[2018-02-17] MEDS ORDERED: ACETAMINOPHEN 500 MG TAB PO ONE (16:40)
[2018-02-17 17:14] VITALS: BP 111/70
== END 2018-02-17 17:09 | disposition home or self-care (01) ==
LOC: EDUNIT#
DX: T80.90XA Unspecified complication following infusion and therapeutic injection, initial encounter (principal); D50.9 Iron deficiency anemia, unspecified; E03.9 Hypothyroidism, unspecified; E78.5 Hyperlipidemia, unspecified; K21.9 Gastro-esophageal reflux disease without esophagitis; Z88.0 Allergy status to penicillin

== ENCOUNTER → 2018-02-25 | Outpatient (CLI) | payer OTHER, MEDICAID | LOC: FIMAGING 13:40 | PROVIDERS: ATTEND Physician Assistant | DX: D50.9 Iron deficiency anemia, unspecified (principal) ==

== ENCOUNTER → 2018-04-09 | Outpatient (CLI) | payer OTHER, MEDICAID ==
[~2018-04-09] MED LIST changes: +GLUCAGON HCL 0.3 MG in SYRINGE 0.3 ML IVP ONE
== END ==
LOC: FIMAGING 09:26
PROVIDERS: ATTEND Nurse Practitioner Family
DX: D50.0 Iron deficiency anemia secondary to blood loss (chronic) (principal); K59.00 Constipation, unspecified
CPT/HCPCS: 72196; 74182; A9585; J1610